=== PATIENT | male | born 1955 | race Caucasian/White ===

== ENCOUNTER 2020-02-16 01:14 | Inpatient (IN) | payer OTHER ==
[~2020-02-16] VITALS: Ht 167.6 cm; Wt 74.2 kg
[2020-02-16 01:35] LABS: BASOPHILS 0.1 % (0-2); HEMATOCRIT 47.7 % (42.0-54.0); IMMATURE GRANULOCYTES 0.1 % (0-5); LYMPHOCYTES 17.5 % (15-50); MCH 29.1 pg (26.0-34.0); MCHC 33.5 g/dL (31.0-37.0); MCV 86.7 fL (80.0-100.0); MEAN PLATELET VOLUME 9.2 fL (7.4-10.4); MONOCYTES 7.1 % (2-11); NEUTROPHILS 74.2 % (40-80); PLATELET COUNT 199 10x3/uL (130-400); WBC 7.1 10x3/uL (4.8-10.8)
[2020-02-16 01:43] LABS: CALC OSMOLALITY 270 mosm/kg (275-300); CALCIUM 8.3 mg/dL (8.5-10.1); CARBON DIOXIDE 25.6 mmol/L (21.0-32.0); CHLORIDE - SERUM 100 mmol/L (98-107); CREATININE - SERUM 0.9 mg/dL (0.6-1.3); GLUCOSE 100 mg/dL (74-106); POTASSIUM - SERUM 3.4 mmol/L (3.5-5.1); SODIUM 135 mmol/L (136-145); UREA NITROGEN 15 mg/dL (7-18); eGFR NON AFRICAN AMERICAN 90 mL/min (90-120)
[2020-02-16 01:44] LABS: INR 1.11 (0.85-1.17); PROTIME 14.2 SECONDS (11.6-15.0)
[2020-02-16 01:45] LABS: APTT 47.8 SECONDS (22.8-39.4)
[2020-02-16 01:49] VITALS: BP 150/110
[2020-02-16 02:04] LABS: ALBUMIN 3.8 g/dL (3.4-5.0); ALKALINE PHOSPHATASE 108 U/L (30-120); ALT (SGPT) 26 U/L (10-68); BILIRUBIN - TOTAL 0.75 mg/dL (0.2-1.3); CKMB 7.8 U/L (0.0-3.6); CREATINE KINASE 1663 UL (21-232); PROTEIN - SERUM 7.7 g/dL (6.4-8.2)
[2020-02-16 02:05] LABS: TROPONIN-I 0.227 ng/mL (0.000-0.060)
[2020-02-16 02:35] VITALS: BP 125/62; BMI 26.4
[2020-02-16 04:00] VITALS: BP 125/62
[2020-02-16 08:23] LABS: INR 1.14 (0.85-1.17); PROTIME 14.6 SECONDS (11.6-15.0)
[2020-02-16 08:25] LABS: APTT 33.4 SECONDS (22.8-39.4)
[2020-02-16 08:31] LABS: CKMB 5.5 U/L (0.0-3.6); PRO BNP 1318 pg/mL (0-125)
[2020-02-16 08:36] LABS: CREATINE KINASE 1340 UL (21-232)
[2020-02-16 08:37] LABS: TROPONIN-I 0.183 ng/mL (0.000-0.060)
[2020-02-16 08:45] VITALS: BP 152/57
[2020-02-16 08:56] VITALS: Ht 167.6 cm; Wt 74.2 kg
[2020-02-16 15:32] LABS: CKMB 5.5 U/L (0.0-3.6)
[2020-02-16 15:37] LABS: CREATINE KINASE 1421 UL (21-232); POTASSIUM - SERUM 4.1 mmol/L (3.5-5.1)
[2020-02-16 15:38] LABS: TROPONIN-I 0.111 ng/mL (0.000-0.060)
[2020-02-16 18:16] VITALS: BP 148/66
[2020-02-16 20:00] VITALS: BP 136/60
[2020-02-16 20:24] LABS: CKMB 4.2 U/L (0.0-3.6)
[2020-02-16 20:25] LABS: CREATINE KINASE 1225 UL (21-232); TROPONIN-I 0.098 ng/mL (0.000-0.060)
[2020-02-17] VITALS: BP 155/83
[2020-02-17 04:00] VITALS: BP 175/85
[2020-02-17 05:56] LABS: BASOPHILS 0.2 % (0-2); EOSINOPHILS 4.5 % (0-7); HEMATOCRIT 45.1 % (42.0-54.0); IMMATURE GRANULOCYTES 0.2 % (0-5); LYMPHOCYTES 26.8 % (15-50); MCH 29.1 pg (26.0-34.0); MCHC 33.3 g/dL (31.0-37.0); MCV 87.6 fL (80.0-100.0); MEAN PLATELET VOLUME 9.9 fL (7.4-10.4); MONOCYTES 8.8 % (2-11); NEUTROPHILS 59.5 % (40-80); PLATELET COUNT 190 10x3/uL (130-400); RBC 5.15 10x6/uL (4.20-6.10); RDW 14.4 % (11.5-14.5)
[2020-02-17 06:21] LABS: WBC 5.1 10x3/uL (4.8-10.8)
[2020-02-17 06:29] LABS: CALC OSMOLALITY 276 mosm/kg (275-300); CARBON DIOXIDE 23.8 mmol/L (21.0-32.0); CHLORIDE - SERUM 106 mmol/L (98-107); CREATININE - SERUM 0.8 mg/dL (0.6-1.3); GLUCOSE 79 mg/dL (74-106); MAGNESIUM - SERUM 2.4 mg/dL (1.8-2.4); PHOSPHOROUS 3.3 mg/dL (2.5-4.9); POTASSIUM - SERUM 4.1 mmol/L (3.5-5.1); SODIUM 140 mmol/L (136-145); eGFR NON AFRICAN AMERICAN > 90 mL/min (90-120)
[2020-02-17 06:33] LABS: UREA NITROGEN 11 mg/dL (7-18)
--- NOTE | 2020-02-17 07:00 | NUR ---
BEDSIDE REPORT RECEIVED. SHIFT ASSESSMENT COMPLETED PER FLOWSHEET, SEE FLOWSHEET FOR INFORMATION. PT DENIES ANY ACUTE NEEDS OR DISTRESS AT THIS TIME. WILL CONT TO MONITOR.
[2020-02-17 08:36] VITALS: BP 165/68
--- NOTE | 2020-02-17 19:00 | NUR ---
PT D/C VIA WHEELCHAIR TO PERSONAL VEHICLE. PT DENIES ACUTE NEEDS OR DISTRESS. DISHARGE INSTRUCTIONS GIVEN, QUESTIONS DENIED.
== END 2020-02-17 19:12 | disposition home or self-care (01) | DRG 281 ==
LOC: D.ER 01:14 → D.M2 01:43
PROVIDERS: Family Medicine; ADMIT Internal Medicine Nephrology; ATTEND Internal Medicine Nephrology
DX: I21.A1 Myocardial infarction type 2 (principal); F17.203 Nicotine dependence unspecified, with withdrawal; I10 Essential (primary) hypertension; W19.XXXA Unspecified fall, initial encounter; J40 Bronchitis, not specified as acute or chronic; F10.20 Alcohol dependence, uncomplicated